=== PATIENT | female | born 1970 | race Caucasian/White ===

== ENCOUNTER 2017-04-22 18:04 | Emergency (ER) | END 2017-04-22 20:43 | disposition home or self-care (01) ==

== ENCOUNTER 2017-05-11 04:04 | Emergency (ER) | END 2017-05-11 07:25 | disposition home or self-care (01) ==

== ENCOUNTER 2018-09-01 22:16 | Emergency (ER) | payer OTHER ==
[~2018-09-01] VITALS: Ht 160 cm; Wt 55.9 kg
[~2018-09-01 22:16] MED LIST: CIPR500T4 PO; HYDR-4011 PO; IBUP-1542 PO; METR500T PO; MULTI PO; ONDA4TAB14 PO
[2018-09-01 22:22] VITALS: Ht 160 cm; Wt 55.9 kg
--- NOTE | 2018-09-01 23:13 | ERD ---
ER Documentation Chief Complaint Chief Complaint c/o rectal pain today. constipation x1 month. denies bleeding. HPI 48 female presents with complaint of rectal pain for the past 2 weeks. Denies any history of hemorrhoids. States that the rectal pain is worse when she has low back pain. Also states she has sensation of needing to have a bowel movement but then nothing comes out. States that she has an appointment for colonoscopy coming up in the future. Denies any rectal bleeding. In addition states she has been having some discomfort in the left labia majora area. Denies any masses. Denies any fevers, chills, vaginal discharge, dysuria, hematuria. ROS All systems reviewed and are negative except as per history of present illness. Medications Home Meds Active Scripts Hydrocortisone* Rectal (Preparation H* Cream) 1% - 26 Gm Cream.gm., 1 APPLIC [place] BID, #1 TUB Prov:MARITZA PATTON 09/02/18 Metronidazole* (Flagyl*) 500 Mg Tablet, 500 MG PO TID for 7 Days, TAB Prov:BRUNO PAULSON MD 07/03/18 Ciprofloxacin Hcl* (Ciprofloxacin Hcl*) 500 Mg Tablet, 500 MG PO BID for 10 Days, TAB Prov:TORSTEN JULES MD 04/30/18 Ondansetron (Ondansetron Odt) 4 Mg Tab.rapdis, 4 MG PO Q6H PRN for NAUSEA AND/OR VOMITING, #10 TAB Prov:TORSTEN JULES MD 04/30/18 Ibuprofen* (Motrin*) 600 Mg Tab, 600 MG PO Q6H PRN for PAIN AND OR ELEVATED TEMP, #30 TAB Prov:TORSTEN JULES MD 04/30/18 Hydrocodone/Acetaminophen ([place] 5-325 Tablet) 1 Each Tablet, 1 TAB PO Q6H PRN for SEVERE PAIN LEVEL 7-10, #10 TAB Prov:TORSTEN JULES MD 04/30/18 Reported Medications Multivitamins* (Theragran*) 1 Tab Tab, 1 TAB PO DAILY, TAB 04/30/18 Ibuprofen* (Ibuprofen*) 600 Mg Tablet, 600 MG PO NEEDED, TAB 04/30/18 Allergies Allergies: Coded Allergies: No Known Allergy (Unverified , 09/01/18) PMhx/Soc History of Surgery: No Anesthesia Reaction: No Hx Neurological Disorder: No Hx Respiratory Disorders: No Hx Cardiac Disorders: No Hx Psychiatric Problems: No Hx Miscellaneous Medical Probl: No Hx Alcohol Use: No Hx Substance Use: No Hx Tobacco Use: No FmHx Family History: No diabetes, No coronary disease, No other Physical Exam Vitals Vital Signs Date Temp Pulse Resp B/P (MAP) Pulse Ox O2 O2 Flow FiO2 Time Delivery Rate 09/01/18 97.8 83 20 169/92 99 22:22 (117) Physical Exam Const: No acute distress Head: Atraumatic Eyes: Normal Conjunctiva ENT: Normal External Ears, Nose and Mouth. Neck: Full range of motion. No meningismus. Resp: Clear to auscultation bilaterally Cardio: Regular rate and rhythm, no murmurs Abd: Soft, non tender, non distended. Normal bowel sounds Skin: No petechiae or rashes Back: No midline or flank tenderness Ext: No cyanosis, or edema Neur: Awake and alert Psych: Normal Mood and Affect pelvic: Pelvic: Perform a industrial technologist present. There are no masses or cysts noted to the outer vaginal area. There are no Kendell gland cyst noted. There is some mild tenderness to palpation the left labia majora. Rectal: No masses noted. Some tenderness to palpation in the rectal area in all quadrants. Results 24 hrs Laboratory Tests Test 09/01/18 23:20 09/01/18 23:24 Urine Color STRAW Urine Clarity CLEAR Urine pH 7.0 Urine Specific [place] 1.014 Urine Ketones NEGATIVE mg/dL Urine Nitrite NEGATIVE mg/dL Urine Bilirubin NEGATIVE mg/dL Urine Urobilinogen NEGATIVE mg/dL Urine Leukocyte Esterase NEGATIVE [place]/ul Urine Microscopic RBC 27 /HPF Urine Microscopic WBC 2 /HPF Urine Hemoglobin 1+ mg/dL Urine Glucose NEGATIVE mg/dL Urine Total Protein NEGATIVE mg/dl POC Beta HCG, Qualitative NEGATIVE Procedures/MDM MDM: There are no masses noted on either vaginal or rectal exam. Therefore I have low suspicion for Bartholin gland cyst, perirectal abscess, perianal abscess, or any other emergent condition. Patient stated that she was waiting to receive a colonoscopy and I advised her that that would be the best course of action at this time. Patient treated for possible hemorrhoids with Preparation H. Patient discharged with strict ER precautions. Patient advised to follow up with PMD. All questions answered at discharge. Departure Diagnosis: Primary Impression: Hemorrhoids Condition: Stable MARITZA PATTON Sep 01, 2018 23:13
[2018-09-02] MEDS ORDERED: HYDR26CR PR (00:14)
[2018-09-02] MEDS ORDERED: IBUP-1542 PO (00:27)
[2018-09-02 00:30] VITALS: BP 142/80; PULSE 77; RESP 18
== END 2018-09-02 00:31 | disposition home or self-care (01) ==
LOC: FTE 22:16
DX: K64.9 Unspecified hemorrhoids (principal)
CPT/HCPCS: 81001; 81025; 99284

== ENCOUNTER 2018-09-19 10:28 | Day surgery (SDC) | payer OTHER ==
[~2018-09-19] VITALS: Ht 154.9 cm; Wt 56.0 kg
[2018-09-19] VITALS (12 sets, daily range): BP systolic 118–135; BP diastolic 70–82; PULSE 50–86; RESP 16–27; Ht 154.9 cm; Wt 56.0 kg
[~2018-09-19 10:28] MED LIST changes: +HYDR26CR PR
[2018-09-19] MEDS ORDERED: AMLO-147 ORAL (10:58)
--- NOTE | 2018-09-19 12:23 | PREAC ---
Date/Time of Note Date/Time of Note DATE: 09/19/18 TIME: 12:22 Anesthesia Eval and Record Evaluation Time Pre-Procedure Interview DATE: 09/19/18 TIME: 12:22 Age 48 Sex female NPO: 8 hrs Preoperative diagnosis kidney stones Planned procedure left ureteroscopy, laser lithotripsy, stent placement Past Medical History Past Medical History: Includes Cardio: HTN Surgery & Anesthesia Issues No known issue Meds Anticoagulation: No Beta Onur within 24 hr: No Reason Beta Onur not given: Pt. not on B-Onur Reported Medications Amlodipine Besylate* (Amlodipine Besylate*) 10 Mg Tablet, 5 MG ORAL DAILY 09/19/18 Discontinued Reported Medications Multivitamins* (Theragran*) 1 Tab Tab, 1 TAB PO DAILY, TAB 04/30/18 Ibuprofen* (Ibuprofen*) 600 Mg Tablet, 600 MG PO NEEDED, TAB 04/30/18 Discontinued Scripts Ibuprofen* (Motrin*) 600 Mg Tab, 600 MG PO Q6, #30 TAB Prov:MARITZA PATTON 09/02/18 Hydrocortisone* Rectal (Preparation H* Cream) 1% - 26 Gm Cream.gm., 1 APPLIC [place] BID, #1 TUB Prov:MARITZA PATTON 09/02/18 Metronidazole* (Flagyl*) 500 Mg Tablet, 500 MG PO TID for 7 Days, TAB Prov:BRUNO PAULSON MD 07/03/18 Ciprofloxacin Hcl* (Ciprofloxacin Hcl*) 500 Mg Tablet, 500 MG PO BID for 10 Days, TAB Prov:TORSTEN JULES MD 04/30/18 Ondansetron (Ondansetron Odt) 4 Mg Tab.rapdis, 4 MG PO Q6H PRN for NAUSEA AND/OR VOMITING, #10 TAB Prov:TORSTEN JULES MD 04/30/18 Ibuprofen* (Motrin*) 600 Mg Tab, 600 MG PO Q6H PRN for PAIN AND OR ELEVATED TEMP, #30 TAB Prov:TORSTEN JULES MD 04/30/18 Hydrocodone/Acetaminophen ([place] 5-325 Tablet) 1 Each Tablet, 1 TAB PO Q6H PRN for SEVERE PAIN LEVEL 7-10, #10 TAB Prov:TORSTEN JULES MD 04/30/18 Meds reviewed: Yes Allergies Coded Allergies: No Known Allergy (Unverified , 09/19/18) Allergies Reviewed: Yes Labs/Studies Labs Reviewed: Reviewed by anesthesiologist test: Negative Studies: CXR Pre-procedure Exam Last vitals Vital Signs Date Temp Pulse Resp B/P (MAP) Pulse Ox O2 O2 Flow FiO2 Time Delivery Rate 09/19/18 98.3 86 16 127/82 97 Room Air 11:18 (97) Airway: Adequate mouth opening, Adequate thyromental dist Mallampati: Mallampati I Teeth: Normal Lung: Normal Heart: Normal ASA Physical Status ASA physical status: 2 Emergency: None Planned Anesthetic General/MAC: LMA Planned Pain Management Parenteral pain med Pre-operative Attestations Prior to commencing anesthesia and surgery, the patient was re-evaluated, there was verification of: *The patient's identity *The results of appropriate recent lab work and preoperative vital signs *The above evaluation not changing prior to induction *Anesthetic plan, risk benefits, alternative and complications discussed with patient/family; questions answered; patient/family understands, accepts and wishes to proceed. SHIVA ANDRE Sep 19, 2018 12:23
[2018-09-19] MEDS ORDERED: IOHEXOL 300MG/ML 30 ML BTL ONE (12:24)
[2018-09-19] MEDS ORDERED: PROPOFOL 100 ML ONE (12:27)
[2018-09-19] MEDS ORDERED: ROCURONIUM 50 MG INJ ONE (12:31)
[2018-09-19] MEDS ORDERED: FENTAnyl 50 MCG/ML VIAL ONE (12:31)
[2018-09-19] MEDS ORDERED: LIDOCAINE 2% (SDV) 5 ML INJ ONE (12:31)
--- NOTE | 2018-09-19 12:50 | HPN ---
Date/Time of Note Date/Time of Note DATE: 09/19/18 TIME: 12:50 Interval H&P Admission Note Pt. seen H&P reviewed: No system changes REBECA TOVAR MD Sep 19, 2018 12:50
[2018-09-19] MEDS ORDERED: CEFAZOLIN 1 GM INJ ONE (12:59)
[2018-09-19] MEDS ORDERED: DEXAMETHASONE 4 MG/ML 5 ML INJ ONE (13:04)
[2018-09-19] MEDS ORDERED: ONDANSETRON 4 MG INJ ONE (13:04)
[2018-09-19] MEDS ORDERED: GLYCOPYRROLATE 0.4 MG INJ ONE (13:43)
[2018-09-19] MEDS ORDERED: NEOSTIGMINE 3 MG/3 ML SYRINGE ONE (13:43)
--- NOTE | 2018-09-19 14:05 | PAC ---
Date/Time of Note Date/Time of Note DATE: 09/19/18 TIME: 14:04 Post-Anesthesia Notes Post-Anesthesia Note Last documented vital signs Vital Signs Date Temp Pulse Resp B/P (MAP) Pulse Ox O2 O2 Flow FiO2 Time Delivery Rate 09/19/18 98.3 86 16 127/82 97 Room Air 1404 (97) Activity: WNL Respiratory function: WNL Cardiovascular function: WNL Mental status: Baseline Pain reasonably controlled: Yes Hydration appropriate: Yes Nausea/Vomiting absent: Yes SHIVA ANDRE Sep 19, 2018 14:05
--- NOTE | 2018-09-19 14:08 | OPR ---
Date/Time of Note Date/Time of Note DATE: 09/19/18 TIME: 14:02 Operative Report Procedure Date: Sep 19, 2018 Preoperative Diagnosis Left ureteral stone Postoperative Diagnosis Same Operation/Procedure Performed Left ureteroscopy, laser lithotripsy and insertion of left ureteral JJ stent Surgeon see signature line Carpenter Assembler Veronica Fortune Anesthesia Type: general Anesthesiologist: SHIVA ANDRE Estimated Blood Loss: none Transfusion none Specimen Urine for culture and sensitivity, fragments of distal left ureteral stone Grafts/Implants none Complications none Pt Condition Post Procedure: stable Disposition: PACU Indications Left ureteral stone with obstruction. Procedure Description The patient was brought to the operating room. Time out was done the patient was identified by her name, birthdate, the procedure and the side of the procedure. The patient was given 2 g of Ancef IV at the start of the procedure. The patient was then positioned in the lithotomy position and the genital area was prepped and draped in the usual sterile manner. #21 Pan[place]ian cystoscope sheath was introduced into the bladder, urine was collected for culture and sensitivity. The left ureteral orifice was visualized and it appeared edematous and on the fluoroscopy one could see the stone about a centimeter away from it. The ureteral orifice was then cannulated with a 5 Panamanian open ended ureteral catheter and a 0.035 zip wire was passed fluid and advanced all the way up to the kidney. The open ended was then removed and reintroduced through the second working channel and another wire 0.035 sensor wire was passed also up to the kidney. The sensor wire was used as a safety wire. The zip wire was used to advance the rigid ureteroscope on it. The ureteroscope was advanced to the level of the stone, the stone was visualized, then the wire was removed and the 365 m laser fiber was used and the holmium laser was used to break the stone in to multiple pieces. these pieces were then basketed one at a time and dropped into the bladder,the ureter was cleared completely from the stone fragments. Then I did the cystoscopy and drained all the stone fragments out of the bladder. Then I reintroduced the cystoscope on the safety wire and inserted a 6 Panamanian by 22 cm long JJ stent in the left ureter under fluoroscopy, had its proximal end curling into the kidney and the distal end curling into the bladder. The distal end is attached to a string that was brought out through the urethra and taped with 2 pieces of Tegaderm to her right groin. The patient tolerated the procedure well and was transferred to recovery room in stable and satisfactory condition REBECA TOVAR MD Sep 19, 2018 14:08
[2018-09-19] MEDS ORDERED: hydrALAzine 20 MG INJ IV PRN (14:30)
[2018-09-19] MEDS ORDERED: OXYCODONE/ACETAMINOPHEN (5/325) TAB PO PRN ×2 (14:30)
[2018-09-19] MEDS ORDERED: EPHEDrine 25 MG/5 ML SYG IV PRN (14:30)
[2018-09-19] MEDS ORDERED: MEPERIDINE 25 MG INJ IV PRN (14:30)
[2018-09-19] MEDS ORDERED: KETOROLAC 30 MG INJ IV PRN (14:30)
[2018-09-19] MEDS ORDERED: LABETALOL HCL 20MG INJ IV PRN (14:30)
[2018-09-19] MEDS ORDERED: ALBUTEROL 0.083% (NEB) 2.5 MG/3 ML AMP HHN PRN (14:30)
[2018-09-19] MEDS ORDERED: ONDANSETRON 4 MG INJ IV PRN (14:30)
[2018-09-19] MEDS ORDERED: HYDROCODONE/APAP (5/325) TAB PO PRN (14:30)
[2018-09-19] MEDS ORDERED: DIPHENHYDRAMINE 50 MG INJ IV PRN (14:30)
[2018-09-19] MEDS ORDERED: FENTAnyl 50 MCG/ML VIAL IV PRN ×3 (14:30)
== END 2018-09-19 15:40 | disposition home or self-care (01) ==
LOC: SDS 10:28
PROVIDERS: ATTEND Urology
DX: N20.1 Calculus of ureter (principal); I10 Essential (primary) hypertension
CPT/HCPCS: 52356; 74430; 87086; 88300; C2617; J0690; J1100; J2405; J2710; J3010; Q9967